=== PATIENT | male | born 1980 ===

== ENCOUNTER 2018-03-28 14:59 | Emergency (ER) | payer OTHER ==
[2018-03-28 15:08] VITALS: O2SAT 98
--- NOTE | 2018-03-28 17:16 | CT ---
PROCEDURE: CT HEAD WITHOUT CONTRAST. HISTORY: Persistent headaches s/p head injury at work COMPARISON: None available. TECHNIQUE: Axial computed tomography images were obtained through the head/brain without intravenous contrast. Radiation dose: Total exam DLP = 798.16 mGy-cm. This CT exam was performed using one or more of the following dose reduction techniques: Automated exposure control, adjustment of the mA and/or kV according to patient size, and/or use of iterative reconstruction technique. FINDINGS: HEMORRHAGE: No intracranial hemorrhage. BRAIN: Normal garrett-white matter differentiation and density are appreciated throughout the cerebrum and cerebellum with the brainstem appearing unremarkable as well. Subtle left basal ganglia calcification is identified. There is no mass effect. There is no suspicious extra-axial fluid collection and the midline brain anatomy appears diffusely unremarkable. VENTRICLES: Unremarkable. No hydrocephalus. CALVARIUM: No destructive bony lesion or displaced fracture identified including through the skullbase. PARANASAL SINUSES: Unremarkable as visualized. No significant inflammatory changes. MASTOID AIR CELLS: Unremarkable as visualized. No inflammatory changes. OTHER FINDINGS: None. IMPRESSION: Unremarkable unenhanced CT of the head. Follow-up CT or MRI are available if clinically warranted.
--- NOTE | 2018-03-28 17:35 | C.PDOC ---
History Of Present Illness Pt was accidentally his on the left side of his head with a broomstick while at work. Since then he has been experiencing persistent headaches. Time Seen by Provider: 03/28/18 15:25 Chief Complaint (Nursing): Headache History Per: Patient Injury Occurred (Timing): Days Ago: (about 2-3 weeks ago) Patient States: Struck With Object Severity: Moderate Loss Of Consciousness: No Additional History Per: Prior Records Past Medical History Reviewed: Historical Data, Nursing Documentation, Vital Signs Vital Signs: Last Vital Signs Temp 98.1 F 03/28/18 15:07 Pulse 73 03/28/18 15:07 Resp 20 03/28/18 15:07 BP 136/91 H 03/28/18 15:07 Pulse Ox 98 03/28/18 15:07 - Medical History PMH: No Chronic Diseases Family History: States: Unknown Family Hx - Social History Hx Alcohol Use: Yes Hx Substance Use: No - Immunization History Hx Tetanus Toxoid Vaccination: No Hx Influenza Vaccination: No Hx Pneumococcal Vaccination: No Review Of Systems Except As Marked, All Systems Reviewed And Found Negative. Constitutional: Negative for: Fever, Weakness Cardiovascular: Negative for: Chest Pain Respiratory: Negative for: Shortness of Breath Gastrointestinal: Positive for: Nausea. Negative for: Vomiting, Abdominal Pain Skin: Negative for: Rash Neurological: Positive for: Headache. Negative for: Weakness, Numbness, Seizures Physical Exam - Physical Exam Appears: Non-toxic, No Acute Distress Skin: Normal Color, Warm, Dry, No Rash Head: Atraumatic, Normacephalic Eye(s): bilateral: Normal Inspection, PERRL, EOMI Neck: Normal ROM, No Midline Cervical Tenderness, No Step Off Deformity, Supple Chest: Symmetrical, No Deformity Extremity: Normal ROM, No Deformity Neurological/Psych: Oriented x3, Normal Speech, Normal Cognition, Normal Motor, Normal Sensation ED Course And Treatment O2 Sat by Pulse Oximetry: 98 Pulse Ox Interpretation: Normal - CT Scan/US CT head Other Rad Studies (CT/US): Read By Radiologist, Radiology Report Reviewed CT/US Interpretation: IMPRESSION: Unremarkable unenhanced CT of the head. Follow-up CT or MRI are available if clinically warranted. Reassessment Condition: Improved Disposition Counseled Patient/Family Regarding: Studies Performed, Diagnosis, Need For Followup, Rx Given - Disposition Referrals: [facility] [Outside] Disposition: HOME/ ROUTINE Disposition Time: 17:35 Condition: STABLE Additional Instructions: Follow up with your doctor or in the clinic. Return to the ER if you develop weakness, numbness, vomiting, worsening of symptoms or if you have any other concerns. Prescriptions: Ibuprofen [Motrin Tab] 600 mg PO Q8 PRN #30 tab PRN Reason: Pain, Moderate (4-7) Instructions: Concussion, Adult (DC) Print Language: ZIMBABWEAN - Clinical Impression Clinical Impression: Concussion
[2018-03-28 17:45] VITALS: BP 129/83; PULSE 79; RESP 16; TEMP 97.6
== END 2018-03-28 17:45 | disposition home or self-care (01) ==
LOC: C.ER 14:59
DX: S06.0X0A Concussion without loss of consciousness, initial encounter (principal)

== ENCOUNTER 2018-06-10 09:45 | Emergency (ER) | payer OTHER ==
[2018-06-10 09:58] VITALS: RESP 20
--- NOTE | 2018-06-10 10:17 | C.PDOC ---
History Of Present Illness 38 year old male with no past medical history presents with left sided rib pain. Patient states the pain has been going on for one month and it has been constant pain which has been making sleeping difficult on the left side. He denies trauma to the area. He states when he takes a deep breath in he has tenderness to that area. He states he has not taken anything for the pain. Time Seen by Provider: 06/10/18 10:00 Chief Complaint (Nursing): Rib Injury Past Medical History Vital Signs: Last Vital Signs Temp 98.6 F 06/10/18 09:55 Pulse 63 06/10/18 09:55 Resp 20 06/10/18 09:55 BP 147/97 H 06/10/18 09:55 Pulse Ox 96 06/10/18 10:31 Family History: States: Unknown Family Hx - Social History Hx Alcohol Use: Yes Hx Substance Use: No - Immunization History Hx Tetanus Toxoid Vaccination: No Hx Influenza Vaccination: No Hx Pneumococcal Vaccination: No Review Of Systems Constitutional: Negative for: Fever, Chills Cardiovascular: Negative for: Chest Pain, Palpitations Respiratory: Negative for: Cough Gastrointestinal: Negative for: Nausea, Vomiting, Abdominal Pain Genitourinary: Negative for: Dysuria Musculoskeletal: Positive for: Other (left rib pain ) Skin: Negative for: Rash Physical Exam - Physical Exam Appears: Well Skin: Normal Color, No Rash Head: Atraumatic Eye(s): bilateral: Normal Inspection, PERRL, EOMI Oral Mucosa: Moist Chest: Symmetrical, No Deformity, Tenderness (left sided rib 6/7 tenderness) Cardiovascular: Rhythm Regular Respiratory: Normal Breath Sounds, No Accessory Muscle Use, No Rales, No Rhonchi , No Stridor, No Wheezing Gastrointestinal/Abdominal: Normal Exam, Soft, No Tenderness, No Organomegaly, No Mass, No Distention Back: Normal Inspection, No CVA Tenderness Extremity: No Tenderness, No Pedal Edema Neurological/Psych: Oriented x3 ED Course And Treatment ECG: Interpreted By Me, Viewed By Me ECG Rhythm: Sinus Rhythm ECG Interpretation: Normal Rate From EC O2 Sat by Pulse Oximetry: 96 - Other Rad No standard instances X-Ray: Interpreted by Me, Viewed By Me Interpretation: Left Rib Series: Negative for Fracture Medical Decision Making Medical Decision Making: Patient given Motrin in the ER and states the pain has improved. Counselled patient to take over the counter ibuprofen every 6 hours as needed for pain. Disposition Discussed With : Bettina Cooper Doctor Will See Patient In The: ED - Disposition Referrals: Sherly Castaneda MD [Staff Provider] - Disposition: HOME/ ROUTINE Disposition Time: 11:20 Condition: IMPROVED Additional Instructions: Over the counter ibuprofen every 6 hours as needed for pain. 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 MD/DO has examined the patient and agrees with the treatment plan.
[2018-06-10 11:32] VITALS: BP 116/78; PULSE 49; TEMP 97.6; O2SAT 99
--- NOTE | 2018-06-10 13:35 | RAD ---
Date of service: 06/10/2018 PROCEDURE: Radiographs of the Chest and Left Ribs. HISTORY: left rib pain COMPARISON: None available. TECHNIQUE: Frontal radiograph of the chest and multiple oblique radiographs of the left ribs were obtained. FINDINGS: LEFT RIBS: No fracture or focal lesion visualized. LUNGS: Bilateral nonspecific nodular densities, possibly calcified granulomas. PLEURA: No pneumothorax or pleural fluid. CARDIOVASCULAR: Normal sized heart. No pulmonary vascular congestion. OTHER FINDINGS: None. IMPRESSION: Unremarkable radiographs of the chest and left ribs. No left rib fracture. Nonspecific bilateral nodular densities, possibly calcified granulomas. Correlate with history of granulomatous disease, if any.
--- NOTE | 2018-06-11 14:14 | CARD ---
APPROVED REPORT Date of service: 06/10/2018 EKG Measurement Heart [id number] <Conclusion> Normal sinus rhythm Normal ECG
== END 2018-06-10 11:35 | disposition home or self-care (01) ==
LOC: C.ER 09:45
DX: M94.0 Chondrocostal junction syndrome [Tietze] (principal)